=== PATIENT | female | born 1945 | race Hispanic/Latino ===

== ENCOUNTER 2017-07-11 11:47 | Emergency (ER) | payer MEDICARE ==
[~2017-07-11] VITALS: Ht 154.9 cm; Wt 72.6 kg
== END 2017-07-11 14:54 | disposition left against medical advice (07) ==
LOC: ER 11:47
DX: R53.1 Weakness (principal); R68.83 Chills (without fever)
CPT/HCPCS: 99281

== ENCOUNTER 2024-08-28 15:14 | Inpatient (IN) | payer MEDICARE ==
[~2024-08-28] VITALS: Ht 154.9 cm; Wt 72.6 kg
[2024-08-28] VITALS (7 sets, daily range): BP systolic 123; BP diastolic 60–63; PULSE 98–101; RESP 18–26; TEMP 98–98.7; O2SAT 98–99
[2024-08-28] MEDS ORDERED: SODIUM CHLORIDE FLUSH 10 ML SYR IV PRN (16:00)
[2024-08-28 16:01] LABS: BASOPHILS % 0.1 % (0.0-1.0); HEMATOCRIT 41.5 % (34.2-44.1); HEMOGLOBIN 13.8 g/dL (12.0-16.0); LYMPHOCYTES # (AUTO) 2.3 (1.0-3.2); LYMPHOCYTES % 23.1 % (18.0-39.1); MEAN CORPUSCULAR HEMOGLOBIN 31.4 pg (28-32); MEAN CORPUSCULAR HGB CONC 33.3 g/dL (31-35); MEAN CORPUSCULAR VOLUME 94.3 fL (81-99); MONOCYTES % 9.4 % (4.4-11.3); NEUTROPHILS # (AUTO) 6.8 (2.1-6.9); NEUTROPHILS % 67.1 % (38.7-80.0); PLATELET COUNT 265 x10e3/uL (140-360); RED CELL DISTRIBUTION WIDTH 12.1 % (11.7-14.4)
[2024-08-28 16:13] LABS: ALANINE AMINOTRANSFERASE 14 IU/L (0-55); ALKALINE PHOSPHATASE 96 IU/L (40-150); ANION GAP 14.1 mmol/L (8-16); BILIRUBIN,TOTAL 0.6 mg/dL (0.2-1.2); BLOOD UREA NITROGEN 13 mg/dL (7-26); BUN/CREATININE RATIO 18 (6-25); CALCIUM 9.8 mg/dL (8.4-10.2); CARBON DIOXIDE 22 mmol/L (22-29); CHLORIDE 106 mmol/L (98-107); CREATININE, SERUM 0.71 mg/dL (0.57-1.11); EST GLOMERULAR FILTRATION RATE 85 ML/MIN (>=60); GLUCOSE 171 mg/dL (74-118); MAGNESIUM 1.7 MG/DL (1.3-2.1); POTASSIUM 3.1 mmol/L (3.5-5.1); SODIUM 139 mmol/L (136-145)
[2024-08-28 16:23] LABS: TROPONIN I < 0.001 ng/mL (0-0.300)
[2024-08-28] MEDS: ALBUTEROL/IPRATROPIUM 3 ML NEB NEB ONE (16:38)
[2024-08-28] MEDS: METHYLPREDNISOLONE SOD SUCC 125 MG/2ML VIAL IV STA (16:41)
[2024-08-28] MEDS: SODIUM CHLORIDE 0.9% 500ML 500 ML IV ONE (16:42)
[2024-08-28 16:48] LABS: CORONAVIRUS COVID-19 AG NEGATIVE (NEGATIVE); INFLUENZA A AG NEGATIVE (NEGATIVE); INFLUENZA B AG NEGATIVE (NEGATIVE)
[2024-08-28] MEDS: Doxycycline IV 100 MG in SODIUM CHLORIDE 0.9% 100 ML IV SCH (17:29)
[2024-08-28] MEDS: SODIUM CHLORIDE 0.9% 1000ML 1,000 ML IV STA (17:55)
[2024-08-28] MEDS: ALBUTEROL/IPRATROPIUM 3 ML NEB NEB SCH (18:52)
[2024-08-28] MEDS: SODIUM CHLORIDE 0.9% 1000ML 1,000 ML IV SCH (19:23)
[2024-08-28] MEDS ORDERED: SYMBICORT 16010.2 GM PO (22:04)
[2024-08-28] MEDS ORDERED: SERTRALINE HCL100 MG PO (22:04)
[2024-08-28] MEDS ORDERED: LOSARTAN POTASS50 MG PO (22:04)
[2024-08-28] MEDS ORDERED: CELECOXIB200 MG PO (22:04)
[2024-08-28] MEDS ORDERED: ATORVASTATIN CA40 MG PO (22:04)
[2024-08-28] MEDS ORDERED: VICTOZA 2-0.6 MG/0.1 IJ (22:04)
[2024-08-28] MEDS ORDERED: OMEPRAZOLE40 MG PO (22:04)
[2024-08-28] MEDS ORDERED: MONTELUKAST SOD10 MG PO (22:04)
[2024-08-28] MEDS ORDERED: LEVOTHYROXINE75 MCG PO (22:04)
[2024-08-28] MEDS ORDERED: QUETIAPINE FUM150 MG PO (22:04)
[2024-08-28] MEDS: METHYLPREDNISOLONE SOD SUCC 125 MG/2ML VIAL IV SCH (22:12)
[2024-08-29] VITALS (18 sets, daily range): BP systolic 108–129; BP diastolic 55–64; PULSE 85–101; RESP 18–23; TEMP 97.5–98.1; O2SAT 95–100
[2024-08-29 06:38] LABS: BASOPHILS % 0.3 % (0.0-1.0); HEMATOCRIT 37.4 % (34.2-44.1); HEMOGLOBIN 12.3 g/dL (12.0-16.0); LYMPHOCYTES # (AUTO) 0.6 (1.0-3.2); LYMPHOCYTES % 8.1 % (18.0-39.1); MEAN CORPUSCULAR HEMOGLOBIN 31.7 pg (28-32); MEAN CORPUSCULAR HGB CONC 32.9 g/dL (31-35); MEAN CORPUSCULAR VOLUME 96.4 fL (81-99); MONOCYTES # (AUTO) 0.2 (0.2-0.8); MONOCYTES % 2.3 % (4.4-11.3); NEUTROPHILS # (AUTO) 6.6 (2.1-6.9); NEUTROPHILS % 88.8 % (38.7-80.0); PLATELET COUNT 227 x10e3/uL (140-360); RED BLOOD COUNT 3.88 x10e6/uL (3.6-5.1); WHITE BLOOD COUNT 7.38 x10e3/uL (4.8-10.8)
[2024-08-29 07:08] LABS: ALBUMIN 3.3 g/dL (3.5-5.0); ANION GAP 15.9 mmol/L (8-16); BILIRUBIN,TOTAL 0.5 mg/dL (0.2-1.2); CALCIUM 8.9 mg/dL (8.4-10.2); CREATININE, SERUM 0.7 mg/dL (0.57-1.11); POTASSIUM 3.9 mmol/L (3.5-5.1); TOTAL PROTEIN 6.7 g/dL (6.5-8.1)
[2024-08-29 07:20] LABS: CREATINE KINASE 62 IU/L (29-168)
[2024-08-29 07:28] LABS: TROPONIN I < 0.001 ng/mL (0-0.300)
[2024-08-29] MEDS ORDERED: DEXTROSE 50% SYRINGE 50 ML IV PRN (08:45)
[2024-08-29] MEDS: BUDESONIDE/FORMOTEROL 160/4.5MCG INHALER INH SCH (09:00)
[2024-08-29] MEDS ORDERED: IOPAMIDOL 370 MG/ML 100 ML INFUS..BTL INJ ONE (09:34)
[2024-08-29] MEDS: SERTRALINE HCL 100 MG TAB PO SCH (09:42)
[2024-08-29] MEDS: PANTOPRAZOLE SOD 40 MG TABEC PO SCH (09:42)
[2024-08-29] MEDS: LEVOTHYROXINE SODIUM 75 MCG TAB PO SCH (09:45)
[2024-08-29] MEDS: INSULIN REGULAR, HUMAN 100 UNIT/1 ML SQ SCH (12:54)
[2024-08-29 13:08] LABS: CREATINE KINASE 63 IU/L (29-168)
[2024-08-29 13:15] LABS: TROPONIN I < 0.001 ng/mL (0-0.300)
[2024-08-29] MEDS: ENOXAPARIN SOD INJ 40 MG/0.4 ML SYR SC SCH (17:14)
[2024-08-29] MEDS: ATORVASTATIN 40 MG TAB PO SCH (20:30)
[2024-08-29] MEDS: METHYLPREDNISOLONE SOD SUCC 125 MG/2ML VIAL IV SCH (20:30)
[2024-08-29] MEDS: MONTELUKAST SODIUM 10 MG TAB PO SCH (20:30)
[2024-08-30] VITALS (17 sets, daily range): BP systolic 100–141; BP diastolic 67–101; PULSE 86–110; RESP 18–24; TEMP 96.1–98.1; O2SAT 94–100
[2024-08-30] MEDS: BENZONATATE 100 MG CAP PO PRN (00:20)
[2024-08-30 08:02] LABS: BASOPHILS % 0.2 % (0.0-1.0); HEMATOCRIT 36.7 % (34.2-44.1); HEMOGLOBIN 12.1 g/dL (12.0-16.0); LYMPHOCYTES # (AUTO) 0.8 (1.0-3.2); LYMPHOCYTES % 6.8 % (18.0-39.1); MEAN CORPUSCULAR HEMOGLOBIN 31.8 pg (28-32); MEAN CORPUSCULAR VOLUME 96.6 fL (81-99); MONOCYTES # (AUTO) 0.5 (0.2-0.8); MONOCYTES % 4.4 % (4.4-11.3); NEUTROPHILS # (AUTO) 10.3 (2.1-6.9); NEUTROPHILS % 88.2 % (38.7-80.0); PLATELET COUNT 230 x10e3/uL (140-360); RED CELL DISTRIBUTION WIDTH 12.2 % (11.7-14.4)
[2024-08-30 08:26] LABS: ANION GAP 15.9 mmol/L (8-16); CALCIUM 9.1 mg/dL (8.4-10.2); CREATININE, SERUM 0.66 mg/dL (0.57-1.11); POTASSIUM 3.9 mmol/L (3.5-5.1)
[2024-08-30] MEDS: CELECOXIB 200 MG CAP PO SCH (09:00)
[2024-08-30] MEDS: DOCUSATE SODIUM 100 MG CAP PO SCH (13:14)
[2024-08-31] VITALS (15 sets, daily range): BP systolic 122–141; BP diastolic 60–80; PULSE 77–107; RESP 17–22; TEMP 97.1–98.7; O2SAT 97–100
[2024-08-31 06:34] LABS: BASOPHILS % 0.2 % (0.0-1.0); HEMATOCRIT 37.7 % (34.2-44.1); HEMOGLOBIN 12.3 g/dL (12.0-16.0); LYMPHOCYTES # (AUTO) 0.7 (1.0-3.2); LYMPHOCYTES % 8.4 % (18.0-39.1); MEAN CORPUSCULAR HEMOGLOBIN 31.4 pg (28-32); MEAN CORPUSCULAR HGB CONC 32.6 g/dL (31-35); MEAN CORPUSCULAR VOLUME 96.2 fL (81-99); MONOCYTES # (AUTO) 0.4 (0.2-0.8); MONOCYTES % 4.9 % (4.4-11.3); NEUTROPHILS # (AUTO) 7.4 (2.1-6.9); PLATELET COUNT 234 x10e3/uL (140-360); RED BLOOD COUNT 3.92 x10e6/uL (3.6-5.1); RED CELL DISTRIBUTION WIDTH 12.2 % (11.7-14.4)
[2024-08-31 07:08] LABS: ANION GAP 14.9 mmol/L (8-16); CALCIUM 9.3 mg/dL (8.4-10.2); CREATININE, SERUM 0.68 mg/dL (0.57-1.11); POTASSIUM 3.9 mmol/L (3.5-5.1)
[2024-08-31] MEDS: SENNOSIDES 8.6 MG TAB PO PRN (17:00)
[2024-09-01] VITALS (14 sets, daily range): BP systolic 116–135; BP diastolic 68–75; PULSE 82–96; RESP 18–21; TEMP 97.5–98.2; O2SAT 96–100
[2024-09-01 08:23] LABS: BASOPHILS % 0.2 % (0.0-1.0); HEMATOCRIT 38.8 % (34.2-44.1); HEMOGLOBIN 12.8 g/dL (12.0-16.0); MEAN CORPUSCULAR HEMOGLOBIN 31.5 pg (28-32); MEAN CORPUSCULAR VOLUME 95.6 fL (81-99); MONOCYTES # (AUTO) 0.6 (0.2-0.8); MONOCYTES % 7.3 % (4.4-11.3); NEUTROPHILS # (AUTO) 6.6 (2.1-6.9); PLATELET COUNT 271 x10e3/uL (140-360); RED BLOOD COUNT 4.06 x10e6/uL (3.6-5.1); RED CELL DISTRIBUTION WIDTH 12.1 % (11.7-14.4); WHITE BLOOD COUNT 8.23 x10e3/uL (4.8-10.8)
[2024-09-01 08:50] LABS: CALCIUM 8.9 mg/dL (8.4-10.2); CREATININE, SERUM 0.7 mg/dL (0.57-1.11); MAGNESIUM 1.8 MG/DL (1.3-2.1)
[2024-09-02] VITALS (13 sets, daily range): BP systolic 122–136; BP diastolic 49–78; PULSE 75–102; RESP 16–21; TEMP 97.6–98.9; O2SAT 96–99
[2024-09-03] VITALS (9 sets, daily range): BP systolic 96–118; BP diastolic 59–84; PULSE 86–102; RESP 18–20; TEMP 97.7–98.6; O2SAT 96–100
[2024-09-03] MEDS: PREDNISONE 10 MG TAB PO SCH (08:28)
[2024-09-03] MEDS ORDERED: DOXYCYCLINE HY100 MG PO (13:54)
[2024-09-03] MEDS ORDERED: PREDNISONE20 MG PO (13:54)
== END 2024-09-03 15:10 | disposition home or self-care (01) | DRG 193 ==
LOC: ER 16:11 → ERHOLD 18:09 → MED/SURG3 19:43
PROVIDERS: ADMIT Internal Medicine; ATTEND Internal Medicine
DX: J18.9 Pneumonia, unspecified organism (principal); J96.01 Acute respiratory failure with hypoxia; J45.901 Unspecified asthma with (acute) exacerbation; J20.9 Acute bronchitis, unspecified; E11.65 Type 2 diabetes mellitus with hyperglycemia; I10 Essential (primary) hypertension; E78.49 Other hyperlipidemia; K21.9 Gastro-esophageal reflux disease without esophagitis; F41.9 Anxiety disorder, unspecified; F32.A Depression, unspecified; Z11.52 Encounter for screening for COVID-19; Z79.85 Long-term (current) use of injectable non-insulin antidiabetic drugs; Z79.890 Hormone replacement therapy; Z90.49 Acquired absence of other specified parts of digestive tract; Z88.0 Allergy status to penicillin; Z88.6 Allergy status to analgesic agent
CPT/HCPCS: 36415; 71045; 71260; 80048; 80053; 82550; 82948; 83605; 83735; 83880; 84484; 85025; 87040; 93005; 93306; 94664; 94760; 94799; 99284; J0696; J1650; J2919; J7030; J7040; J7050; J7512; Q9967